=== PATIENT | male | born 1990 | race Caucasian/White ===

== ENCOUNTER 2017-05-29 13:55 | Emergency (ER) | payer SELFPAY ==
--- NOTE | 2017-05-29 14:50 | EDM.PDOC ---
ED HPI GENERAL MEDICAL PROBLEM - General Chief Complaint: ENT Problem Stated Complaint: SORE THROAT Time Seen by Provider: 05/29/17 14:45 - History of Present Illness INITIAL COMMENTS - FREE TEXT/NARRATIVE: HISTORY AND PHYSICAL: History of present illness: Patient 27-year-old male presents with concern of sore throat 6 days he's had fever denies vomiting diarrhea denies cough denies shortness of breath or other concern Review of systems: As per history of present illness and below otherwise all systems reviewed and negative. Past medical history: As per history of present illness and as reviewed below otherwise noncontributory. Surgical history: As per history of present illness and as reviewed below otherwise noncontributory. Social history: No reported history of drug or alcohol abuse. Family history: As per history of present illness and as reviewed below otherwise noncontributory. Physical exam: HEENT: Atraumatic, normocephalic, pupils reactive, negative for conjunctival pallor or scleral icterus, mucous membranes moist, throat injected there is no peritonsillar fullness uvular deviation or hot potato voice no trismus, neck supple, nontender, trachea midline. Lungs: Clear to auscultation, breath sounds equal bilaterally, chest nontender. Heart: S1S2, regular, negative for clicks, rubs, or JVD. Abdomen: Soft, nondistended, nontender. Negative for masses or hepatosplenomegaly. Negative for costovertebral tenderness. Pelvis: Stable nontender. Genitourinary: Deferred. Rectal: Deferred. Extremities: Atraumatic, negative for cords or calf pain. Neurovascular unremarkable. Neuro: Awake, alert, oriented. Cranial nerves II through XII unremarkable. Cerebellum unremarkable. Motor and sensory unremarkable throughout. Exam nonfocal. Diagnostics: Deferred Therapeutics: None Impression: #1 pharyngitis Definitive disposition and diagnosis as appropriate pending reevaluation and review of above. sore throat Pain Score (Numeric/FACES): 4 - Related Data Allergies Allergy/AdvReac Type Severity Reaction Status Date / Time No Known Allergies Allergy Verified 05/29/17 14:09 Home Meds: Home Meds . [No Known Home Meds] 05/16/14 [History] Past Medical History - Past Health History Medical/Surgical History: Denies Medical/Surgical History Neurological History: Reports: Migraines - Infectious Disease History Infectious Disease History: Reports: Chicken Pox Social & Family History - Family History Family Medical History: Noncontributory - Tobacco Use Smoking Status *Q: Never Smoker - Caffeine Use Caffeine Use: Reports: None - Alcohol Use Days Per Week of Alcohol Use: 3 Number of Drinks Per Day: 10 Total Drinks Per Week: 30 - Recreational Drug Use Recreational Drug Use: No Recreational Drug Type: Reports: Marijuana/Hashish Recreational Drug Last Use: 5 years ED ROS GENERAL - Review of Systems Review Of Systems: ROS reveals no pertinent complaints other than HPI. ED EXAM, GENERAL - Physical Exam Exam: See Below (See dictation) Course - Vital Signs Text/Narrative:: Patient defers any diagnostics and request empiric treatment Last Recorded V/S: Last Vital Signs Temp 37.6 C 05/29/17 14:09 Pulse 101 H 05/29/17 14:09 Resp 16 05/29/17 14:09 BP 147/92 H 05/29/17 14:09 Pulse Ox 100 05/29/17 14:09 Departure - Departure Time of Disposition: 14:49 Disposition: Home, Self-Care 01 Condition: Good Clinical Impression: Pharyngitis - Discharge Information Referrals: PCP,None [Primary Care Provider] - Additional Instructions: The following information is given to patients seen in the emergency department who are being discharged to home. This information is to outline your options for follow-up care. We provide all patients seen in our emergency department with a follow-up referral. The need for follow-up, as well as the timing and circumstances, are variable depending upon the specifics of your emergency department visit. If you don't have a primary care physician on staff, we will provide you with a referral. We always advise you to contact your personal physician following an emergency department visit to inform them of the circumstance of the visit and for follow-up with them and/or the need for any referrals to a consulting specialist. The emergency department will also refer you to a specialist when appropriate. This referral assures that you have the opportunity for followup care with a specialist. All of these measure are taken in an effort to provide you with optimal care, which includes your followup. Under all circumstances we always encourage you to contact your private physician who remains a resource for coordinating your care. When calling for followup care, please make the office aware that this follow-up is from your recent emergency room visit. If for any reason you are refused follow-up, please contact the [facility] emergency department at and asked to speak to the emergency department charge nurse. Augmentin is prescribed Motrin/Tylenol as directed follow primary medical doctor wanted today's return as needed as discussed
== END 2017-05-29 15:00 | disposition home or self-care (01) ==
LOC: MW.ED 13:55
DX: J02.9 Acute pharyngitis, unspecified (principal)
CPT/HCPCS: 99282

== ENCOUNTER 2018-09-16 16:32 | Emergency (ER) | payer OTHER ==
[2018-09-16] MEDS ORDERED: Bupivacaine 0.25% 10 ML SDV INJECT ONE (16:41)
[2018-09-16] MEDS ORDERED: Bupivacaine 0.25% 10 ML SDV ONE (16:42)
--- NOTE | 2018-09-16 16:50 | EDM.PDOC ---
ED HPI GENERAL MEDICAL PROBLEM - General Chief Complaint: Laceration Stated Complaint: CUT FINGER Time Seen by Provider: 09/16/18 16:40 - History of Present Illness INITIAL COMMENTS - FREE TEXT/NARRATIVE: HISTORY AND PHYSICAL: History of present illness: Patient is a 28-year-old white male presents status post near partial amputation of the distal aspect of the second digit of his right hand has occurred with a meat saw me denies other trauma or concern tetanus status is to be determined. Review of systems: As per history of present illness and below otherwise all systems reviewed and negative. Past medical history: As per history of present illness and as reviewed below otherwise noncontributory. Surgical history: As per history of present illness and as reviewed below otherwise noncontributory. Social history: No reported history of drug or alcohol abuse. Family history: As per history of present illness and as reviewed below otherwise noncontributory. Physical exam: HEENT: Atraumatic, normocephalic, pupils reactive, negative for conjunctival pallor or scleral icterus, mucous membranes moist, throat clear, neck supple, nontender, trachea midline. Lungs: Clear to auscultation, breath sounds equal bilaterally, chest nontender. Heart: S1S2, regular, negative for clicks, rubs, or JVD. Abdomen: Soft, nondistended, nontender. Negative for masses or hepatosplenomegaly. Negative for costovertebral tenderness. Pelvis: Stable nontender. Genitourinary: Deferred. Rectal: Deferred. Extremities: Patient has a near partial amputation involving the lateral aspect of the distal third Of the second digit neurovascular exam is intact as is still attached and does seem to have a reasonable vascular supply. Neuro: Awake, alert, oriented. Cranial nerves II through XII unremarkable. Cerebellum unremarkable. Motor and sensory unremarkable throughout. Exam nonfocal. Diagnostics: X-ray right hand Therapeutics: Patient was anesthetized with 0.25% Marcaine without epinephrine was irrigated with copious amounts of saline prepped and draped in a sterile manner and compromised tissue was secured with 4-0 nylon suture Tubegauz bacitracin dressing was applied as well as a aluminum/foam splint. Impression: #1 near partial amputation second digit right Definitive disposition and diagnosis as appropriate pending reevaluation and review of above. right 2nd finger Pain Score (Numeric/FACES): 9 - Related Data Allergies Allergy/AdvReac Type Severity Reaction Status Date / Time No Known Allergies Allergy Verified 09/16/18 16:43 Home Meds: Home Meds . [No Known Home Meds] 05/16/14 [History] Past Medical History - Past Health History Medical/Surgical History: Denies Medical/Surgical History Neurological History: Reports: Migraines - Infectious Disease History Infectious Disease History: Reports: Chicken Pox Social & Family History - Family History Family Medical History: Noncontributory - Caffeine Use Caffeine Use: Reports: None ED ROS GENERAL - Review of Systems Review Of Systems: ROS reveals no pertinent complaints other than HPI. ED EXAM, SKIN/RASH Exam: See Below (See dictation) Course - Vital Signs Text/Narrative:: I discussed with patient the risk to the compromise tissue in that at worse this is a biological dressing for which she will have close follow-up with hand surgeon at best this may remain viable and is to be determined patient understands the risk of infection and the cosmetic issues and the need for close follow-up he will be discharged on Keflex taken as prescribed he is to keep his hand elevated follow-up with hand surgery as discussed and return as needed as discussed for any problems This is x-ray did demonstrate a tuft fracture I discussed with him concerns regarding infection he was given Ancef 1 g IM and will be prescribed Keflex and hydrocodone and he will follow-up with hand surgery early this week as discussed. Last Recorded V/S: Last Vital Signs Temp 36.8 C 09/16/18 16:43 Pulse 108 H 09/16/18 16:43 Resp 18 09/16/18 16:43 BP 155/80 H 09/16/18 16:43 Pulse Ox 97 09/16/18 16:43 - Orders/Labs/Meds Orders: Active Orders 24 hr Category Date Time Status Hand Comp Min 3V Rt [CR] Stat Exams 09/16/18 16:42 Taken Meds: Medications Discontinued Medications Generic Name Dose Route Start Last Admin Trade Name Samara PRN Reason Stop Dose Admin Bupivacaine HCl 10 ml 09/16/18 16:41 09/16/18 17:20 Sensorcaine-Mpf 0.25% INJECT 09/16/18 16:42 10 ml ONETIME ONE Administration Bupivacaine HCl Confirm 09/16/18 16:42 Sensorcaine-Mpf 0.25% Administered 09/16/18 16:43 Dose 10 ml .ROUTE .STK-MED ONE Cefazolin Sodium 1 gm 09/16/18 17:19 Ancef IM 09/16/18 17:20 ONETIME ONE Departure - Departure Time of Disposition: 17:24 Disposition: Home, Self-Care 01 Condition: Good Clinical Impression: Open fracture of tuft of distal phalanx of finger - Discharge Information Referrals: PCP,Unknown [Primary Care Provider] - Forms: ED Department Discharge Additional Instructions: The following information is given to patients seen in the emergency department who are being discharged to home. This information is to outline your options for follow-up care. We provide all patients seen in our emergency department with a follow-up referral. The need for follow-up, as well as the timing and circumstances, are variable depending upon the specifics of your emergency department visit. If you don't have a primary care physician on staff, we will provide you with a referral. We always advise you to contact your personal physician following an emergency department visit to inform them of the circumstance of the visit and for follow-up with them and/or the need for any referrals to a consulting specialist. The emergency department will also refer you to a specialist when appropriate. This referral assures that you have the opportunity for followup care with a specialist. All of these measure are taken in an effort to provide you with optimal care, which includes your followup. Under all circumstances we always encourage you to contact your private physician who remains a resource for coordinating your care. When calling for followup care, please make the office aware that this follow-up is from your recent emergency room visit. If for any reason you are refused follow-up, please contact the [facility] emergency department at and asked to speak to the emergency department charge nurse. [facility] specialty clinic-Plastics [address] [place] [id number] Keflex [place] as prescribed and keep hand elevated as much as possible as discussed no work splint as directed sling as directed follow-up hand surgery as discussed return as needed as discussed - My Orders Last 24 Hours: My Active Orders 09/16/18 16:42 Hand Comp Min 3V Rt [CR] Stat - Assessment/Plan Last 24 Hours: My Active Orders 09/16/18 16:42 Hand Comp Min 3V Rt [CR] Stat
[2018-09-16] MEDS ORDERED: ceFAZolin 1 GM Vial IM ONE (17:19)
[2018-09-16] MEDS ORDERED: Bacitracin Oint 1 GM U/D Packet ONE (17:24)
[2018-09-16] MEDS ORDERED: Water For Injection, Sterile 20 ML ONE (17:24)
[2018-09-16] MEDS ORDERED: Bacitracin Oint 1 GM U/D Packet TOP ONE (17:32)
--- NOTE | 2018-09-16 18:02 | CR ---
HISTORY: Pain after injury. Laceration. FINDINGS: Three views of the right hand are provided. There is near complete amputation of the distal portion of the index finger and nail bed. There is a small curvilinear fragment of the distal tuft which is part of a partially amputated soft tissue component. This appears relatively minor. There is no evidence for fracture elsewhere. No foreign body is noted. No findings for dislocation or arthritic change. Dictated by Thomas Rodriguez MD @ Sep 16 2018 5:57PM Signed by Dr. Thomas Rodriguez @ Sep 16 2018 6:00PM
== END 2018-09-16 17:59 | disposition home or self-care (01) ==
LOC: MW.ED 16:32
DX: S62.630B Displaced fracture of distal phalanx of right index finger, initial encounter for open fracture (principal); W27.8XXA Contact with other nonpowered hand tool, initial encounter
CPT/HCPCS: 12001; 73130; 96372; 99283; J0690; J3490

== ENCOUNTER 2020-11-27 17:50 | Emergency (ER) | payer OTHER ==
--- NOTE | 2020-11-27 18:52 | EDM.PDOC ---
ED HPI GENERAL MEDICAL PROBLEM - General Chief Complaint: Laceration Stated Complaint: CUTLFT HAND Time Seen by Provider: 11/27/20 18:33 Source of Information: Reports: Patient History Limitations: Reports: No Limitations - History of Present Illness INITIAL COMMENTS - FREE TEXT/NARRATIVE: HISTORY AND PHYSICAL: History of present illness: The patient is a the patient is a 30-year-old male who presents to the emergency room with a laceration to his right proximal 2nd metacarpal joint after attempting to attempting to cut a twist tie with his pocket knife. Patient did not clean the wound prior to arrival. Did not take any medication prior to arrival. The patient's last known tetanus was 2 years ago. Review of systems: As per history of present illness and below otherwise all systems reviewed and negative. Past medical history: As per history of present illness and as reviewed below otherwise noncontributory. Surgical history: As per history of present illness and as reviewed below otherwise noncontributory. Social history: See social history for further information Family history: As per history of present illness and as reviewed below otherwise noncont ributory. Physical exam: General: Well developed and well nourished. Alert and orientated x 3. Nontoxic in appearance and in no acute distress. Vital signs are stable and have been reviewed by me. Nursing notes were reviewed. HEENT: Atraumatic, normocephalic, pupils equal and reactive bilaterally, negative for conjunctival pallor or scleral icterus, mucous membranes moist. No hot potato voice noted. Lungs: Clear to auscultation bilaterally. No wheezes, rales, or rhonchi. Chest nontender. Normal work of breathing, no accessory muscles used. Heart: S1S2, regular rate and rhythm without overt murmur, gallops, or rubs. No JVD. No peripheral edema Abdomen: Soft, nondistended, nontender. Normoactive bowel sounds. Negative for masses or costovertebral tenderness. Skin: 3.5 cm laceration proximal to right second metacarpal joint in the webbing. No active bleeding. Skin warm & dry. No lesions or rashes noted. Hematologic: No petechiae or purpra. Mucosa appropriate color and normal nail bed color and refill. Extremities: See skin. Moves all extremities per self without difficulty or deficits, negative for cords or calf pain. Neurovascular unremarkable. Neuro: Awake, alert, oriented. Cranial nerves II through XII unremarkable. Cerebellum unremarkable. Motor and sensory unremarkable throughout. Exam nonfocal. Psychiatric: Mood and affect are appropriate. Normal thought process. Answering questions appropriately. Notes: *This patient was seen and evaluated during the 2019 SARS-CoV-2 novel coronavirus pandemic period. Community viral transmission is ongoing at time of this encounter and the emergency department is operating under pandemic response procedures. As stated above the patient presents to the emergency department with a 3.5 cm laceration proximal to right second metacarpal joint in the webbing. The patient is agreeable to lidocaine for anesthesia and approximation with sutures. Please see suture procedure note. The patient tolerated the suture procedure well. I have educated the patient on suture care and when to return to the emergency department. As the patient is a smoker he was instructed to return in 10 days for suture removal. The patient is agreeable with the discharge plan. I have talked with the patient about today's findings, in addition to providing specific details for plan of care. Reassessment at the time of disposition demonstrates that the patient is in no acute distress. The patient is stable for discharge, counseling was provided and we discussed in great detail signs and symptoms that would prompt them to return to the Emergency Department. Medication, follow up and supportive care measures were reviewed and discussed. Voices understanding and is agreeable to plan of care. Denies any further questions or concerns at this time. Therapeutics: Lidocaine 1% Impression: Laceration Plan: 1. Keep the area clean and dry. Continue to monitor for signs of infection. Sutures to be removed in 10 days. 2. Tylenol and/or ibuprofen as needed for pain management. 3. Please follow-up with your primary care provider in the next 1-2 days. Return to the ED as needed and as discussed. Definitive disposition and diagnosis as appropriate pending reevaluation and review of above. Left Hand Pain Score (Numeric/FACES): 7 - Related Data Allergies Allergy/AdvReac Type Severity Reaction Status Date / Time No Known Allergies Allergy Verified 11/27/20 18:37 Home Meds: Home Meds . [No Known Home Meds] 05/16/14 [History] Past Medical History - Past Health History Medical/Surgical History: Denies Medical/Surgical History Neurological History: Reports: Migraines - Infectious Disease History Infectious Disease History: Reports: Chicken Pox Social & Family History - Family History Family Medical History: No Pertinent Family History - Caffeine Use Caffeine Use: Reports: None ED ROS GENERAL - Review of Systems Review Of Systems: Comprehensive ROS is negative, except as noted in HPI. ED EXAM, SKIN/RASH Exam: See Below (See dictation) ED SKIN PROCEDURES - Laceration/Wound Repair Right Dorsal Hand Appearance: Superficial Distal NVT: Neuro & Vascular Intact, No Tendon Injury Anesthetic Type: Local Local Anesthesia - Lidocaine (Xylocaine): 1% Plain Local Anesthetic Volume: 2cc Skin Prep: Chlorhexidine (Hibiciens) Saline Irrigation (cc's): 100 Exploration/Debridement/Repair: Wound Explored, In a Bloodless Field, No Foreign Material Found Closed with: Sutures Lac/Wound length In cm: 3.5 Suture Size: 4-0 # of Sutures: 7 Suture Type: Prolene Course - Vital Signs Last Recorded V/S: Last Vital Signs Temp 97.5 F 11/27/20 18:30 Pulse 94 11/27/20 18:30 Resp BP 140/80 11/27/20 18:30 Pulse Ox 96 11/27/20 18:30 - Orders/Labs/Meds Meds: Medications Discontinued Medications Generic Name Dose Route Start Last Admin Trade Name Samara PRN Reason Stop Dose Admin Lidocaine HCl 5 ml 11/27/20 18:39 11/27/20 18:42 Lidocaine 1% 5 Ml Sdv INJECT 11/27/20 18:40 5 ml ONETIME ONE Administration Departure - Departure Time of Disposition: 19:31 Disposition: Home, Self-Care 01 Condition: Good Clinical Impression: Accidental laceration - Discharge Information *PRESCRIPTION DRUG MONITORING PROGRAM REVIEWED*: Not Applicable *COPY OF PRESCRIPTION DRUG MONITORING REPORT IN PATIENT CORAL: Not Applicable Instructions: Laceration Care, Adult Referrals: PCP,None [Primary Care Provider] - Forms: ED Department Discharge Additional Instructions: The following information is given to patients seen in the emergency department who are being discharged to home. This information is to outline your options for follow-up care. We provide all patients seen in our emergency department with a follow-up referral. The need for follow-up, as well as the timing and circumstances, are variable depending upon the specifics of your emergency department visit. If you don't have a primary care physician on staff, we will provide you with a referral. We always advise you to contact your personal physician following an emergency department visit to inform them of the circumstance of the visit and for follow-up with them and/or the need for any referrals to a consulting specialist. The emergency department will also refer you to a specialist when appropriate. This referral assures that you have the opportunity for follow-up care with a sp ecialist. All of these measure are taken in an effort to provide you with optimal care, which includes your follow-up. Under all circumstances we always encourage you to contact your private physicia n who remains a resource for coordinating your care. When calling for follow-up care, please make the office aware that this follow-up is from your recent emergency room visit. If for any reason you are refused follow-up, please contact the [facility] Emergency Department at and asked to speak to the emergency department charge nurse. [facility] [address] [place] [address] [id number] [address] [id number] Plan: 1. Keep the area clean and dry. Continue to monitor for signs of infection. Sutures to be removed in 10 days. 2. Tylenol and/or ibuprofen as needed for pain management. 3. Please follow-up with your primary care provider in the next 1-2 days. Return to the ED as needed and as discussed. Sepsis Event Note (ED) - Evaluation Sepsis Screening Result: No Definite Risk
== END 2020-11-27 19:55 | disposition home or self-care (01) ==
LOC: MW.ED 17:50
DX: S61.411A Laceration without foreign body of right hand, initial encounter (principal); W26.0XXA Contact with knife, initial encounter
CPT/HCPCS: 12002; 99282; 99282-25

== ENCOUNTER 2024-11-24 07:17 | Emergency (ER) | payer SELFPAY ==
[2024-11-24] MEDS: Diphtheria,Pertussis(Acell),Tetanus Vaccine 0.5 ML Syringe IM ONE (08:43)
[2024-11-24] MEDS: Bupivacaine 0.25% 10 ML SDV INJECT ONE (11:07)
[2024-11-24] MEDS: Lidocaine 1% with EPINEPHrine 1:100,000 10 ML MDV INJECT ONE (11:08)
== END 2024-11-24 12:06 | disposition home or self-care (01) ==
LOC: MW.ED 07:17
DX: S81.811A Laceration without foreign body, right lower leg, initial encounter (principal); Z79.899 Other long term (current) drug therapy; Z23 Encounter for immunization; W26.8XXA Contact with other sharp object(s), not elsewhere classified, initial encounter; Y93.89 Activity, other specified
CPT/HCPCS: 12001; 73590; 90471; 90715; 99283; J0665; 99282